=== PATIENT | female | born 1975 | race African-American/Black ===

== ENCOUNTER 2018-04-11 14:59 | Inpatient (IN) | payer OTHER ==
[~2018-04-11] VITALS: Ht 152.4 cm; Wt 94.3 kg
--- NOTE | ~2018-04-11 | EKG ---
[address] [address] ELECTROCARDIOGRAM REPORT Name: BETINA TORREZ Room #: 430-[facility] IN ..#: [id number] Admission: 04/11/18 Attend Phys: Ryan Vaughan MD Discharge: Date of : 71 Report #: [id number] THIS REPORT FOR: //name// [facility] ED Test Date: 2018-04-11 Test Time: 15:38:45 Pat Name: BETINA ARITA Department: Room: 430 Gender: F Activities Officer: alexa : 1975 Requested By: Romeo Candelario Order Number: [id number] MD: Wing Doyle Measurements Intervals [place] Rate: 89 P: 47 GA: 151 QRS: 9 QRSD: 98 T: 14 QT: 352 QTc: 429 Interpretive Statements Sinus rhythm No previous ECG available for comparison Electronically Signed On 04-12-2018 16:51:27 CDT by Wing Doyle [email or web address] <ELECTRONICALLY SIGNED> By: Wing Doyle MD 04/12/18 1651 1538 1538 Wing Doyle MD /ASIA
--- NOTE | ~2018-04-11 | PATH ---
[facility] [address] [place] [address] PATHOLOGY RPT PROCEDURE Name: BETINA MATOS Room #: 430-[facility] IN ..#: [id number] Admission: 04/11/18 Date of : 71 Discharge: 04/13/18 Report #: [id number] Path Case #: [id number] [facility] Accession Number: [id number] . 01 Material submitted: . GALLBLADDER . 01 Clinical history: . Acute cholecystitis . 02 Diagnosis: Gallbladder, "gallbladder cholecystectomy": - Acute cholecystitis with extensive mucosal necrosis, hemorrhage, edema, congestion, and acute and chronic inflammation. - Cholelithiasis. . (SHA:ladi; 04/14/2018) MBR/04/14/2018 . 02 Electronically signed: . Kris Astudillo MD, Pathologist NPI- [id number] . 01 Gross description: . The specimen is received in formalin, labeled "Betina Matos, gallbladder" and consists of a previously opened, enlarged, purple-brown, and dusky gallbladder measuring 10.1 cm in length by up to 4.1 cm in diameter. There are multifocal areas of serosal adhesions. Present within the container are multiple esteban brown-yellow and multifaceted calculi ranging from 0.3-1.8 cm in length (5.0 x 3.0 cm in aggregate). The mucosa is up-brown, trabeculated, and eroded with a markedly thickened wall measuring up to 0.9 cm. No masses or additional calculi are identified. Pad Machine Operator sections are submitted in A1-A4. (SDY; 04/13/2018) SYU/SYU . 02 Pathologist provided ICD-10: K80.12 . 02 CPT . 788672 Specimen Comment: A courtesy copy of this report has been sent to Specimen Comment: [phone], . Specimen Comment: Report sent to / DR PETERSON Specimen Comment: A duplicate report has been generated due to demographic updates. Performed at: [address] [place] [address] PATHOLOGY RPT PROCEDURE Name: BETINA MATOS A Room #: 430-P [facility] IN M.R.#: [id number] Admission: 04/11/18 Date of : 71 Discharge: 04/13/18 Report #: [id number] Path Case #: [id number] [facility] [address], [place], [place] [id number] MD Dimitri Kaiser MD Phone: [phone] Performed at: [address] [id number] MD Paola Wood MD Phone: [phone]
--- NOTE | ~2018-04-11 | O ---
[facility] [place] [address] OPERATIVE REPORT Name: BETINA TORREZ Room #: 430-P ADM IN M.R.#: [id number] Admission: 04/11/18 Attend Phys: Ryan Vaughan MD Discharge: Date of : 71 Report #: [id number] THIS REPORT FOR: //name// CC: Ryan MODI [facility] DATE OF SERVICE: 04/12/2018 SURGEON: Jensen Mtz MD REHABILITATION SERVICES COUNSELOR: Jonah Plummer, MS3. PREOPERATIVE DIAGNOSES: 1. Acute cholecystitis. 2. Morbid obesity. POSTOPERATIVE DIAGNOSES: 1. Acute cholecystitis with gallbladder hydrops. 2. Morbid obesity. PROCEDURE: Laparoscopic cholecystectomy with intraoperative cholangiogram. ANESTHESIA: General endotracheal anesthesia and local anesthetic. ESTIMATED BLOOD LOSS: 10 mL. SPECIMEN: Gallbladder. COMPLICATIONS: None appreciated. INDICATIONS FOR PROCEDURE: This is a 43-year-old morbidly obese female patient who was seen in the [place] [facility] with lower chest/upper epigastric abdominal pain, starting at 2:00 morning. She developed nausea and vomiting soon thereafter. She tried Pepto-Bismol with no relief of her symptoms. She also reports having had a fever. She was seen in the Emergency Room, where she was found to have a white blood cell count of greater than 16,000. Abdominal ultrasound showed gallstones within a 7 mm thick gallbladder wall with a normal common bile duct diameter and a small amount of pericholecystic fluid. The patient had a positive sonographic Alvarze sign and a positive Alvarez sign on my exam. She presents now for laparoscopic cholecystectomy with cholangiogram, possible cholecystostomy. OPERATIVE FINDINGS: Upon entrance in the abdominal cavity, omentum was seen covering the gallbladder. After exposing the gallbladder, pericholecystic fluid was present. The gallbladder was noted to be distended and edematous. Due to the wall thickness, the gallbladder was not able to be grasped without being [facility] [address] [place] [address] OPERATIVE REPORT Name: BETINA TORREZ Room #: 430-[facility]#: [id number] Admission: 04/11/18 Attend Phys: Ryan Vaughan MD Discharge: Date of : 71 Report #: [id number] aspirated. A 75 mL of initially hydropic fluid, then purulent fluid was aspirated from the gallbladder. The critical view consisting of cystic artery, cystic duct and lower edge of the gallbladder forming a window through which the liver was visible was seen prior to clipping the cystic duct for cholangiogram. The cholangiogram was normal without evidence for filling defects. Contrast flowed freely into the duodenal sweep. After placement of the 3 clips on the cystic duct and division of the cystic duct, the plane between the liver and gallbladder was nondescript and as such, there was moderate bleeding from the liver bed that was controlled with electrocautery during the dissection. Three clips remained on the cystic duct stump. After final hemostasis, no other significant intra-abdominal pathology was seen. The liver, stomach, small bowel and colon in the surrounding area appeared otherwise normal. The gallbladder contained 5 moderate sized nonpigmented stones on the backtable. Significant gallbladder wall thickening was present on cross section. At the conclusion of the operation, the sponge, needle, and instrument counts were correct. DESCRIPTION OF PROCEDURE IN DETAIL: After the benefits and risks of the procedure were explained to the patient which include but are not limited to risks of bleeding, infection, injury to the biliary tree, injury to adjacent organs, risk of DVT, pulmonary embolus, postoperative pain and postoperative expectations informed consent was obtained. The patient was identified in the preoperative holding area. The patient was then given IV antibiotics as documented in the chart to comply with the SCIP protocol. The patient was taken to the operating room and was placed in the supine position. The patient was given IV sedation and was intubated without incident. A time-out was performed to correctly identify the patient and procedure. SCDs were placed on the patient's bilateral lower extremities. The patient's abdomen was then prepped and draped in the standard sterile fashion with ChloraPrep. Local anesthetic was infiltrated into the skin and subcutaneous tissue. A periumbilical incision was made with a #15 blade scalpel. The 11-mm Visiport was then placed intraperitoneally with the 10-mm 0-degree angled laparoscope. After confirmation of placement within the peritoneal cavity, the scope was changed to a 10-mm 30 degree angled laparoscope and pneumoperitoneum was achieved with insufflation of carbon dioxide. The patient was placed in the reverse Trendelenburg position, rotated to the patient's left. A subxiphoid 5 mm and right subcostal 5 mm ports times 2 were placed under direct visualization after local anesthetic was infiltrated into the skin and subcutaneous tissue and appropriately sized incisions were made. Operative findings are as noted above. The dome of the gallbladder was retracted in a cephalad direction. The gallbladder peritoneum was scored medially and laterally after takedown of the adhesions to the gallbladder. Dissection was carried out around the cystic artery and cystic duct to identify each structure as entering directly into the gallbladder. The critical view as described above was seen. A Hemoclip was then placed on the cystic duct at its junction with the gallbladder. A ductotomy was made and the cholangiocatheter was passed into the cystic duct. A [address] [address] OPERATIVE REPORT Name: BETINA TORREZ Room #: [address] [place] [address] [place] ..#: [id number] Admission: 04/11/18 Attend Phys: Ryan Vaughan MD Discharge: Date of : 71 Report #: [id number] clip was placed, contrast was then injected and cholangiogram findings are as noted above. The cholangiocatheter was then removed and the cystic duct was triply clipped distal to the ductotomy. The duct was divided at the ductotomy site with the Harmonic scalpel. The cystic artery was then divided with the Harmonic scalpel as well. The gallbladder was then dissected off the liver bed with the Harmonic scalpel and after fully removing the gallbladder, it was placed in an Endopouch and then removed through the periumbilical port site. The abdominal cavity was then reentered. Other operative findings are as noted above. The liver bed was made hemostatic with a combination of electrocautery and other hemostatic agent as documented in the chart (Jacob). After ensuring final hemostasis and ensuring that the clips were secure, the periumbilical port site fascial opening was closed with a simple interrupted 0 PDS suture under direct visualization using the Jd Bingham laparoscopic fascial closure device. The ports were removed and the abdominal cavity was desufflated. The fascial suture was tied. Interrupted subcuticular 4-0 Monocryl sutures and Dermabond were used to close the skin. The patient tolerated the procedure well. The patient was awakened, extubated and taken to the recovery room in stable condition with no apparent intraoperative complications. <ELECTRONICALLY SIGNED> By: Jensen Mtz MD, FACS 04/13/18 0634 1219 1244 Jensen Mtz MD, FACS /nt
[~2018-04-11 14:59] MED LIST: FISH OIL 1,0001 EAC8; KEFLEX500 MG PO; MEDROLDOSEPACK PO; MULTIVITAMINS1 EAC7; [UNRECOGNIZED DRUG - OTHER]
[2018-04-11 15:05] VITALS: BP 134/85
[2018-04-11 15:31] LABS: ABSOLUTE NEUTROPHILS 14.2 thou/uL (1.4-8.2); BASOPHILS 0.1 % (0.0-2.0); EOSINOPHILS 0.2 % (0.0-3.0); HEMATOCRIT 33.9 % (37.0-47.0); HEMOGLOBIN 10.7 gm/dL (12.0-15.0); MCH 22.8 pg (26.0-34.0); MCHC 31.6 g/dL (28.0-37.0); MCV 72.1 fL (80.0-100.0); MONOCYTES 6.7 % (1.0-8.0); PLATELET COUNT 287 thou/uL (150-400); RDW 18.7 % (10.5-14.5); WBC 16.5 thou/uL (4.0-11.0)
[2018-04-11 15:35] LABS: ANION GAP 8 mmol/L (7-16); BUN 14 mg/dL (7-18); CALCIUM 9.2 mg/dL (8.5-10.1); CHLORIDE 99 mmol/L (98-107); CO2 26 mmol/L (21-32); CREATININE 0.9 mg/dL (0.6-1.0); GLUCOSE 94 mg/dL (74-106); SODIUM 133 mmol/L (136-145)
[2018-04-11 15:44] LABS: ALBUMIN 3.5 g/dL (3.4-5.0); LIPASE 134 U/L (73-393); SGOT 17 U/L (15-37); SGPT 24 U/L (30-65); TOTAL BILIRUBIN 0.6 mg/dL (<0.1-1.0); TOTAL PROTEIN 8.6 g/dL (6.4-8.2); TROPONIN-I <0.06 ng/mL (<0.06)
[2018-04-11 15:54] LABS: HYPOCHROMASIA 1+
[2018-04-11 15:55] LABS: ANISOCYTOSIS 1+; MICROCYTES 1+
[2018-04-11 16:40] LABS: URINE BILIRUBIN NEGATIVE (Negative); URINE BLOOD TRACE (Negative); URINE CLARITY CLEAR; URINE COLOR YELLOW; URINE GLUCOSE-RANDOM* NEGATIVE (Negative); URINE KETONES TRACE (Negative); URINE LEUKOCYTES-REFLEX NEGATIVE (Negative); URINE NITRITE-REFLEX NEGATIVE (Negative); URINE PROTEIN (DIPSTICK) TRACE (Negative)
[2018-04-11 17:31] VITALS: BP 107/56
[2018-04-11 18:01] VITALS: BP 97/70
[2018-04-11 19:34] VITALS: BP 125/61
[2018-04-12 04:37] LABS: HEMATOCRIT 27.8 % (37.0-47.0); HEMOGLOBIN 8.8 gm/dL (12.0-15.0); MCHC 31.5 g/dL (28.0-37.0); RBC 3.81 mil/uL (4.20-5.00); RDW 18.7 % (10.5-14.5)
[2018-04-12 04:47] VITALS: BP 119/75
[2018-04-12 04:49] LABS: ALBUMIN 2.7 g/dL (3.4-5.0); CALCIUM 7.6 mg/dL (8.5-10.1); CREATININE 0.7 mg/dL (0.6-1.0); POTASSIUM 3.5 mmol/L (3.5-5.1); TOTAL BILIRUBIN 0.6 mg/dL (<0.1-1.0); TOTAL PROTEIN 6.8 g/dL (6.4-8.2)
[2018-04-12] MEDS ORDERED: NORCO 5-325 TA1 EACH PO (12:13)
[2018-04-12] MEDS ORDERED: SENNA-S TABLET1 EACH PO (12:13)
[2018-04-12 19:36] VITALS: BP 141/68
[2018-04-13 04:35] VITALS: BP 128/73
[2018-04-13 08:07] VITALS: BP 117/58
[2018-04-13 14:49] VITALS: BP 117/58
[2018-04-13 17:29] VITALS: BP 123/79
== END 2018-04-13 18:35 | disposition home or self-care (01) | DRG 417 ==
LOC: ER 14:59 → EROBS 17:05 → 4E 17:05 → ENTRNSPT 04-13 17:57 → 4E 04-13 18:35
PROVIDERS: Emergency Medicine; Family Medicine
PROC: 0FT44ZZ Resection of Gallbladder, Percutaneous Endoscopic Approach (ICD-10-PCS; principal; 2018-04-12)
PROC: BF131ZZ Fluoroscopy of Gallbladder and Bile Ducts using Low Osmolar Contrast (ICD-10-PCS; principal; 2018-04-12)
DX: K81.0 Acute cholecystitis (principal); E43 Unspecified severe protein-calorie malnutrition; K82.1 Hydrops of gallbladder; Z68.41 Body mass index [BMI] 40.0-44.9, adult; D72.829 Elevated white blood cell count, unspecified; E87.6 Hypokalemia; E16.2 Hypoglycemia, unspecified; E66.01 Morbid (severe) obesity due to excess calories; F12.10 Cannabis abuse, uncomplicated; Z23 Encounter for immunization; Z79.899 Other long term (current) drug therapy
CPT/HCPCS: 10084; 50010; 50101; 50249; 50411; 50555; 50558; 50900; 50962; 51489; 51975; 52265; 52266; 52287; 53307; 53310; 54022; 54118; 55245; 55317; 56462; 56525; 56526; 62110; 62900; 70005